=== PATIENT | female | born 1960 | race Caucasian/White ===

== ENCOUNTER 2016-04-14 08:01 | Inpatient (IN) | payer BC ==
[2016-03-04 08:14] VITALS: BMI 34.0
--- NOTE | 2016-03-04 08:45 | PAT Medication Instructions ---
Service Date Mar 04, 2016. Current Home Medication List Amlodipine (Norvasc), 5 MG PO QAM Ibuprofen (Advil), 400 MG PO HS Lisinopril (Zestril), 10 MG PO QAM Tramadol (Ultram), 3 TAB PO BID PRN for Pain Medication Instructions For Your Scheduled Surgery Ibuprofen (Advil), 400 MG PO HS (per surgeon instructions) - Hold the following medications the morning of surgery: Lisinopril (Zestril), 10 MG PO QAM - Take the following medications the morning of surgery with a sip of water: Amlodipine (Norvasc), 5 MG PO QAM Tramadol (Ultram), 3 TAB PO BID PRN for Pain (okay to take up to 4 hours prior to surgery if needed) - Take the following medications as scheduled the night before surgery: Tramadol (Ultram), 3 TAB PO BID PRN for Pain (if needed) If you have any questions please call us at [phone] (Adilene Thomson PA-C) or [phone] or [phone]
--- NOTE | 2016-03-04 09:16 | DIAGNOSTIC IMAGING REPORT ---
CHEST PREADMISSION(PA/LAT) CLINICAL HISTORY: PAT preoperative evaluation COMPARISON STUDY: No previous studies for comparison. FINDINGS: The bones soft tissues and hemidiaphragms are normal. The cardiomediastinal silhouette is normal. The lungs are clear. The pulmonary vasculature is normal. IMPRESSION: Negative chest. Electronically signed by: Tong Lin M.D. 03/04/2016 9:15 AM
[2016-03-04 09:29] LABS: BASO % 0.2 %; BASO ABS # 0.01 K/uL (0-0.2); COMPLETE YES; EOS % 3.2 %; HEMATOCRIT 41.4 % (37-47); LYMPH % 30.3 %; LYMPH ABS # 1.53 K/uL (1.2-3.4); MEAN CELL VOLUME 89.6 fL (80-100); MEAN CORPUSCULAR HEMOGLOBIN 30.1 pg (25-34); MEAN CORPUSCULAR HGB CONC 33.6 g/dl (32-36); MEAN PLATELET VOLUME 11.8 fL (7.4-10.4); MONO % 9.3 %; PLATELET COUNT 309 K/uL (130-400); RED BLOOD COUNT 4.62 M/uL (4.2-5.4); WHITE BLOOD COUNT 5.05 K/uL (4.8-10.8)
[2016-03-04 09:38] LABS: INR 0.9 (0.9-1.1); PROTHROMBIN TIME (PATIENT) 9.9 SECONDS (9.0-12.0)
[2016-03-04 10:03] LABS: CREATININE 0.69 mg/dl (0.60-1.20)
[2016-03-04 11:53] LABS: CALCIUM 9.3 mg/dl (8.5-10.1)
[2016-03-04 12:00] LABS: ESTIMATED AVERAGE GLUCOSE 108 mg/dl; HA1C FLAG Normal (Normal)
--- NOTE | 2016-03-17 15:55 | History and Physical ---
History & Physical DATE OF SURGERY: 04/01/16 PROCEDURE: Left knee replacement on 04/01/16 HISTORY OF PRESENT ILLNESS: The patient is a pleasant 55-year-old female who presents for preoperative evaluation prior to left knee replacement. She has been having pain in this knee for several years now, which has gradually worsened, and now gotten to the point where it is affecting her daily activities including walking, standing, going up and down steps. She has tried oral anti-inflammatories including Aleve and ibuprofen without relief, has had previous cortisone injections as well as viscosupplementation. She has done physical therapy as well with minimal relief. At this point in time, has failed conservative measures and would like to proceed with a left knee replacement. PAST MEDICAL HISTORY: 1. Hypertension. ALLERGIES: NKDA CURRENT MEDICATIONS: 1. Lisinopril 2. Amlodipine 5mg daily 3. Tramadol prn pain 4. Advil as needed PAST SURGICAL HISTORY: 1. left knee arthroscopy FAMILY HISTORY: Noncontributory. SOCIAL HISTORY: The patient denies alcohol consumption, quit smoking 30 years ago. REVIEW OF SYSTEMS: Otherwise negative. Please see HPI for pertinent positives. PHYSICAL EXAMINATION: GENERAL: Maritza 55-year-old female in no acute distress, alert and oriented x3. She is 5 feet 5 inches, weighs 200 pounds. VITAL SIGNS: Blood pressure 126/84, pulse 68, O2 sat 98%. HEENT: Normocephalic, atraumatic. CARDIAC: Regular rate and rhythm. No murmurs or gallops appreciated. Resting pulse 68 beats per minute. LUNGS: Clear to auscultation without rales or wheeze bilaterally. ABDOMEN: Soft, nontender. Bowel sounds present. EXTREMITIES: Left lower extremity is neurovascularly intact. Calves are soft and nontender. DP pulse +2, demonstrates good quad tone. Straight leg raise is without lag. No erythema or warmth. Has mild effusion. Overall has varus alignment. Her knee is ligamentously stable. Has diffuse tenderness to the knee which is the greatest over the medial compartment. IMAGING: Reviewed of the left knee show findings consistent with degenerative joint disease including joint space narrowing, subchondral sclerosis, peripheral osteophytes noted. Has varus alignment. Has greatest degenerative changes in the medial compartment and patellofemoral joint. IMPRESSION: 1. Left knee degenerative joint disease. 2. Hypertension. PLAN: Further care discussed with the patient. At this point in time, has failed conservative measures and would like to proceed with a left knee replacement. Would like to be discharged home with home health physical therapy, will place on aspirin 81 mg p.o. b.i.d. for a month postop. Follow up 2 weeks postop for staple removal or sooner if she is having any problems.
[2016-04-14] VITALS (8 sets, daily range): BP systolic 104–138; BP diastolic 67–94; PULSE 79–101; TEMP 36.5–37; O2SAT 95–98; Ht 165.1 cm; Wt 93.7 kg
[~2016-04-14] VITALS: Ht 165.1 cm; Wt 93.7 kg
--- NOTE | 2016-04-14 07:12 | History & Physical Bridge Note ---
H&P Re-Evaluation Bridge Note: I have examined the patient, reviewed the History & Physical and in the interval since the performance of the History & Physical I have noted the following changes of clinical significance: No changes noted
[~2016-04-14 08:01] MED LIST: ACETAMINOPHEN 500 MG TAB PO SCH; AMLO-110 PO; BUPIVACAINE 0.5 % 5 MG/1 ML PF 10ML VIAL ONE; CEFAZOLIN 2000 MG/60 ML D5W 60 ML IV SCH; CeleBREX 200 MG CAP PO SCH; DEXAMETHASONE 4 MG TAB PO SCH; FAMOTIDINE 20 MG TAB PO SCH; GABAPENTIN 300 MG CAP PO SCH; IBUP-1050 PO; LACTATED RINGER'S 1000ML IV SCH; LACTATED RINGER'S 500 ML IV SCH; LISI-461 PO; METOCLOPRAMIDE HCL 10 MG TAB PO SCH; ROPIVACAINE 5MG/ML 30 ML 150 MG, BUPIVACAINE/EPINEPHR 0.5% MPF 30 ML, KETOROLAC TROMETH... INFIL SCH; TRAM-10 PO
[2016-04-14] MEDS ORDERED: NURSING VERBAL MED ORDER STA (08:18)
[2016-04-14] MEDS ORDERED: FENTANYL CITRATE INJ 50 MCG/1 ML 2 ML VIAL IV PRN (09:00)
[2016-04-14] MEDS ORDERED: EpHEDrine SULFATE INJ 50 MG/ML AMP IV PRN (09:00)
[2016-04-14] MEDS ORDERED: ONDANSETRON INJ 2 MG/ML 2 ML VIAL IV PRN ×2 (09:00→12:15)
[2016-04-14] MEDS ORDERED: ATROPINE SULFATE 0.1 MG/ML 5ML SYR IV PRN (09:00)
[2016-04-14] MEDS ORDERED: FENTANYL CITRATE INJ 50 MCG/1 ML 2 ML VIAL ONE (09:08)
[2016-04-14] MEDS ORDERED: PROPOFOL IV EMULSION 10 MG/ML 20 ML VIAL IV ONE (09:08)
[2016-04-14] MEDS ORDERED: MIDAZOLAM HCL 1 MG/ML 2ML VIAL ONE (09:08)
[2016-04-14] MEDS ORDERED: ONDANSETRON INJ 2 MG/ML 2 ML VIAL ONE (09:08)
[2016-04-14] MEDS ORDERED: LIDOCAINE HCL 2% 2 ML VIAL (20MG/ML) ONE (09:08)
[2016-04-14] MEDS ORDERED: ORTHO JOINT ANESTHETIC ONE (10:07)
[2016-04-14] MEDS: TRANEXAMIC ACID AMP 1,000 MG in NSS 100ML IV SCH ×2 (10:12→14:23)
[2016-04-14] MEDS ORDERED: PHENYLEPHRINE 100MCG/ML 5ML SYR ONE (10:47)
[2016-04-14] MEDS ORDERED: BACITRACIN 50000 UNIT VIAL IR ONE (11:04)
[2016-04-14] MEDS ORDERED: POVIDONE-IODINE OP SOLN 30 ML BTL TOP ONE (11:04)
--- NOTE | 2016-04-14 11:31 | [facility] Post Operative Brief Note ---
Immediate Operative Summary Operative Date Apr 14, 2016. Pre-Operative Diagnosis Left knee degenerative joint disease Post-Operative Diagnosis Left knee degenerative joint disease Procedure(s) Performed Left Total Knee Arthroplasty Surgeon Dr. Aydin Castillo Multifocal Button Inspector Surgeon(s) Min Pena PA-C Estimated Blood Loss 5cc Findings severe djd lt knee Specimens A: Left Knee Bone and Tissue Complication(s) None Disposition Recovery Room / PACU
--- NOTE | 2016-04-14 11:48 | OPERATIVE REPORT ---
DATE OF OPERATION: 04/14/2016 PREOPERATIVE DIAGNOSIS: Severe end-stage tricompartmental degenerative joint disease left knee. POSTOPERATIVE DIAGNOSIS: Severe end-stage degenerative joint disease, left knee. Valgus alignment and genu recurvatum. PROCEDURE: Left total knee arthroplasty with Journey II total knee arthroplasty, patient matched size 4 femur, 2 tibia, 15 poly, 29 oval patella. SURGEON: Dr. Castillo. WHEEL SHOP SUPERVISOR: Min Pena PA-C who was necessary for prepping, draping, retraction, wound closure of deep fascia, subQ and skin and was necessary for the case. ESTIMATED BLOOD LOSS: 5 mL. COMPLICATIONS: None. TOURNIQUET TIME: 45 minutes. HISTORY OF PRESENT ILLNESS: The patient presents as a very pleasant 56-year-old female with severe DJD attributable to her left knee. She has been nonresponsive to conservative therapy and presents today for total knee arthroplasty after failing attempts at injections, viscosupplementations, relative rest, activity modification. OPERATION AND FINDINGS: PROCEDURE: The patient was properly prepped and draped in supine position for total knee arthroplasty after identifying the appropriate surgical site. An anterior midline incision was made through the subcutaneous tissues down to the region of the extensor mechanism. A medial parapatellar incision was subsequently made. Meticulous hemostasis was obtained and performed at all times. The patella having been subluxed lateralward, medial and lateral meniscal remnants were excised. The patellar cut was then initially made and was sized to the appropriate size. After subluxing the tibia forward the appropriate meniscal fragments having been removed the distal femur was then cut first utilizing a Camp \T\ Nephew block. The distal femoral cuts and chamfer cuts were all made under direct visualization and the proximal tibial osteotomy cut was also made utilizing Camp \T\ Nephew blocks and checked with an extramedullary guide. The appropriate trial components on the femur and tibia were placed. Appropriate trial spacers were used to check flexion and extension gaps. With flexion and extension gaps being equal, the components were then subsequently after thorough irrigation and debridement lavage components were then subsequently cemented in the following order: femur, tibia and patella. Exparel was used for intraoperative anesthesia, the medial parapatellar incision was closed utilizing #1 Vicryl, subQ was closed with 2-0 Vicryl, skin was closed with skin clips. A sterile compression dressing was placed. The patient was taken to recovery room in stable condition. Due to the complex nature of the procedure, the entire surgery was performed with the operational assistance of Min Pena PA-C. The retail assistant, under direct supervision, was involved in the actual performance of all aspects of the surgical procedure including hemostasis, tissue retraction and incision, instrument management, patient positioning, and wound closure. I attest to the content of the Intraoperative Record and any orders documented therein. Any exceptio ns are noted below.
[2016-04-14] MEDS ORDERED: OXYCODONE HCL IR 5 MG TAB (IMMEDIATE RELEASE) PO PRN (12:15)
[2016-04-14] MEDS ORDERED: ZOLPIDEM TARTRATE 5 MG TAB PO PRN (12:15)
[2016-04-14] MEDS ORDERED: BISACODYL 10 MG SUPP PR PRN (12:15)
[2016-04-14] MEDS ORDERED: MAGNESIUM HYDROXIDE SUSP 30 ML UDC PO PRN (12:15)
[2016-04-14] MEDS ORDERED: DiphenhydrAMINE HCL 50 MG/ML VIAL IV PRN (12:15)
[2016-04-14] MEDS ORDERED: ALUMINUM/MAGNESIUM/SIMETH (MAALOX MAX) 30 ML UDC PO PRN (12:15)
[2016-04-14] MEDS ORDERED: MoRPHine SULFATE 2 MG/ML CARP IV PRN ×2 (12:15→14:15)
--- NOTE | 2016-04-14 12:40 | DIAGNOSTIC IMAGING REPORT ---
LEFT KNEE 2 VIEWS History: Left total knee arthroplasty. Degenerative arthritis. Postop. FINDINGS: The patient is status post a left total knee arthroplasty. The hardware is intact. No fracture or dislocation. Skin hugo and surgical drains are in place. IMPRESSION: Left total knee arthroplasty. No evidence for hardware complication. Electronically signed by: Douglas Fish M.D. 04/14/2016 12:38 PM Dictated Date/Time: 04/14/2016 12:36 PM
[2016-04-14] MEDS ORDERED: MoRPHine SULFATE 10 MG/ML CARP/VIAL IV PRN (14:15)
[2016-04-14] MEDS ORDERED: MoRPHine SULFATE 4 MG/ML 1 ML CARP\\VIAL IV PRN (14:15)
[2016-04-14] MEDS: D5W AND 1/2NSS + 20MEQ KCL 1,000 ML IV SCH (14:36)
--- NOTE | 2016-04-14 15:32 | Anesthesiology Progress Note ---
Anesthesia Post Op Note Date & Time Apr 14, 2016 at 15:32 Vital Signs Pain Intensity: 0.0 Vital Signs Past 12 Hours Date Time Temp Pulse Resp B/P Pulse Ox O2 Delivery O2 Flow Rate FiO2 04/14/16 14:35 86 129/78 04/14/16 14:02 36.5 85 16 120/74 98 Nasal Cannula 2.0 04/14/16 13:30 98 Nasal Cannula 2.0 04/14/16 13:30 98 Nasal Cannula 2.0 04/14/16 13:30 36.6 97 16 104/67 97 Nasal Cannula 2.0 04/14/16 13:05 36.8 85 16 109/63 96 Nasal Cannula 2 04/14/16 12:50 36.8 87 16 118/65 97 Nasal Cannula 2 04/14/16 12:40 80 16 118/61 97 Nasal Cannula 2 04/14/16 12:30 85 16 111/60 96 Nasal Cannula 2 04/14/16 12:20 81 16 114/59 97 Mask 10 04/14/16 12:14 37.0 84 16 100/58 100 Mask 10 04/14/16 08:25 36.7 81 20 138/94 96 Room Air Notes Mental Status: alert / awake / arousable, participated in evaluation Pt Amnestic to Procedure: Yes Nausea / Vomiting: adequately controlled Pain: adequately controlled Airway Patency, RR, SpO2: stable & adequate BP & HR: stable & adequate Hydration State: stable & adequate Anesthetic Complications: no major complications apparent
[2016-04-14] MEDS: FERROUS GLUCONATE 324 MG TAB PO SCH (18:09)
[2016-04-14] MEDS: CEFAZOLIN IV 2,000 MG in DEXTROSE 5% 50ML 50 ML IV SCH (18:09)
[2016-04-14] MEDS: ASPIRIN 81 MG ECTAB PO SCH (21:10)
[2016-04-14] MEDS: SENNA 8.6 MG TAB PO SCH (21:10)
[2016-04-14] MEDS: DOCUSATE SODIUM 100 MG CAP PO SCH (21:10)
[2016-04-14] MEDS: ACETAMINOPHEN 500 MG TAB PO SCH (21:11)
[2016-04-14] MEDS: OXYCODONE HCL 10 MG TABCR (OXYCONTIN) PO SCH (21:11)
[2016-04-15] MEDS: D5W AND 1/2NSS + 20MEQ KCL 1,000 ML IV SCH ×2 (00:41→11:08)
[2016-04-15] MEDS: CEFAZOLIN IV 2,000 MG in DEXTROSE 5% 50ML 50 ML IV SCH (01:36)
[2016-04-15 04:00] VITALS: BP 110/71; PULSE 74; TEMP 36.8; O2SAT 96
[2016-04-15] MEDS: ACETAMINOPHEN 500 MG TAB PO SCH ×3 (05:38→21:21)
[2016-04-15 06:36] LABS: HEMATOCRIT 33.3 % (37-47); MEAN CELL VOLUME 88.3 fL (80-100); MEAN CORPUSCULAR HEMOGLOBIN 30.2 pg (25-34); MEAN CORPUSCULAR HGB CONC 34.2 g/dl (32-36); MEAN PLATELET VOLUME 11.3 fL (7.4-10.4); PLATELET COUNT 269 K/uL (130-400); RED BLOOD COUNT 3.77 M/uL (4.2-5.4); WHITE BLOOD COUNT 14.18 K/uL (4.8-10.8)
[2016-04-15 07:05] LABS: BUN/CREATININE RATIO 19.2 (10-20); CALCIUM 8.8 mg/dl (8.5-10.1); CREATININE 0.77 mg/dl (0.60-1.20); POTASSIUM 4.2 mmol/L (3.5-5.1)
[2016-04-15 08:01] VITALS: BP 130/70; PULSE 74; TEMP 36.8; O2SAT 98
[2016-04-15] MEDS: PANTOprazole SOD 40 MG TAB PO SCH (08:53)
[2016-04-15] MEDS: MULTIVITAMIN TAB PO SCH (08:54)
[2016-04-15] MEDS: FERROUS GLUCONATE 324 MG TAB PO SCH ×3 (08:54→17:36)
[2016-04-15] MEDS: AMLODIPINE BESYLATE 5 MG TAB PO SCH (08:54)
[2016-04-15] MEDS: DOCUSATE SODIUM 100 MG CAP PO SCH ×2 (08:54→21:21)
[2016-04-15] MEDS: ASPIRIN 81 MG ECTAB PO SCH ×2 (08:54→21:21)
[2016-04-15] MEDS: OXYCODONE HCL 10 MG TABCR (OXYCONTIN) PO SCH ×2 (08:55→21:20)
[2016-04-15] MEDS: LISINOPRIL 10 MG TAB PO SCH (08:55)
--- NOTE | 2016-04-15 09:50 | Orthopedic Progress Note ---
Orthopedic Progress Note Date of Service Apr 15, 2016. Subjective Post OP Day: 1 Reports: feeling well, pain controlled w PO medications, Denies: SOB, calf pain , chest pain, complaints, light headedness, nausea / vomiting Objective calves soft nontender, N/V intact, capillary refill less than 2 sec., dressing C /D/I, A&O x3, toes mobile, hemovac drainage (70cc/8 hours) Date Time Temp Pulse Resp B/P Pulse Ox O2 Delivery O2 Flow Rate FiO2 04/15/16 08:01 36.8 74 18 130/70 98 Room Air 04/15/16 07:40 Room Air 04/15/16 04:00 36.8 74 18 110/71 96 Room Air 04/14/16 23:45 36.5 79 20 118/73 95 Room Air 04/14/16 19:56 36.9 85 16 119/76 97 Room Air 04/14/16 19:45 Room Air 04/14/16 16:27 37.0 90 16 113/73 96 Nasal Cannula 2.0 04/14/16 15:39 36.6 101 16 118/76 98 Nasal Cannula 2.0 04/14/16 14:35 86 129/78 04/14/16 14:02 36.5 85 16 120/74 98 Nasal Cannula 2.0 04/14/16 13:30 98 Nasal Cannula 2.0 04/14/16 13:30 98 Nasal Cannula 2.0 04/14/16 13:30 36.6 97 16 104/67 97 Nasal Cannula 2.0 04/14/16 13:05 36.8 85 16 109/63 96 Nasal Cannula 2 04/14/16 12:50 36.8 87 16 118/65 97 Nasal Cannula 2 04/14/16 12:40 80 16 118/61 97 Nasal Cannula 2 04/14/16 12:30 85 16 111/60 96 Nasal Cannula 2 04/14/16 12:20 81 16 114/59 97 Mask 10 04/14/16 12:14 37.0 84 16 100/58 100 Mask 10 Laboratory Results 24 Hours: Test 04/15/16 05:50 Hematocrit 33.3 % Hemoglobin 11.4 g/dL Assessment & Plan Assessment: POD #1 s/p Left TKA -PT/OT -dvt proph with teds/scds/asa -plan for dc home with HHPT when stable HTN Discharge Planning Discharge Planning: home with home health DVT Prophylaxis: TEDs, SCDs, ASA Therapy: Physical Therapy
[2016-04-15 10:19] VITALS: O2SAT 98
[2016-04-15 12:01] VITALS: BP 142/70; PULSE 78; TEMP 36.4; O2SAT 94
--- NOTE | 2016-04-15 13:33 | Discharge Instructions ---
Discharge Instructions Admission Reason for Admission: Unilateral Primary Osteoarthritis Left Knee Discharge Discharge Diagnosis / Problem: Left Total Knee Replacement Discharge Goals Goal(s): Decrease discomfort, Improve function, Increase independence Activity Recommendations Activity Limitations: as noted below Weightbearing Status: Left weightbearing (as tolerated) . Instructions / Follow-Up Instructions / Follow-Up ACTIVITY RECOMMENDATIONS: SELF CARE INSTRUCTIONS AFTER TOTAL KNEE REPLACEMENT A. You may need to continue a physical therapy program after discharge from the hospital. There are several options available to you. Your doctor will assist you in selecting the best one for you. 1. An out-patient facility 2 to 3 times a week for therapy or home therapy. 2. Continue working on all exercises taught to you in the hospital. Your goals should be to increase bending of your knee to 90 degrees and beyond and to fully straighten your knee. B. You may progress at your own pace from walking with a walker or crutches to a cane; then to no assistive devices. C. Make walking a part of your daily routine. Be up as much as comfortable with rest periods throughout the day. Rest with leg elevation is very important. Use the ice wrap frequently for the first 3-4 weeks. D. There are no restrictions on activities. You may ride in a car, shop, participate in companion caregiver and all social activities. E. Wear the long elastic stockings (CONSUELO hose) 20 hours a day for 2 weeks after surgery. They can be removed several times a day for laundering and for a bath. F. You may shower, no tub baths until cleared by your doctor. SPECIAL CARE INSTRUCTIONS: VERY IMPORTANT TO READ AND REVIEW A. There are a few signs you need to watch for after you are home. Call [facility] if you notice any of the followin. Increased severe knee pain. Some pain is expected especially when you exercise. 2. Increased swelling in your leg or knee; pain or swelling of the calf muscle in either lower leg. 3. Any fluid drainage from the incision. 4. Shortness of breath or chest pain. B. Please call [facility] at if you have any concerns or questions about your operation or recovery. The doctor or his nurse will return your call promptly. C. You must take antibiotics before dental work, bladder, bowel or other surgery. Your doctor will provide you with a permanent care to carry describing this precaution. IMPORTANT: * REMEMBER TO TAKE ASPIRIN, 81 MG, TWICE DAILY FOR 4 WEEKS UNLESS OTHERWISE DIRECTED. THIS IS YOUR BLOOD THINNER. * HIGH RISK PATIENTS MAY BE PRESCRIBED A STRONGER BLOOD THINNER. THIS WILL BE PROVIDED AT DISCHARGE. * CALL IF INCREASED PAIN, REDNESS, DRAINAGE OR FEVER GREATER THAT 101. * WEAR CONSUELO HOSE 20 HOURS PER DAY FOR 2 WEEKS. * YOU MAY HAVE A LARGE BAND-AID LIKE DRESSING (SILVERON). THIS WILL REMAIN ON YOUR INCISION FOR 7 DAYS, THEN CAN BE REMOVED. IF INCISION IS LEAKING THROUGH DRESSING, CALL THE OFFICE . FOLLOW UP VISIT: If appointment is not already scheduled: Please call [facility] to make a follow-up appointment for 2 weeks after your surgery at . Current Hospital Diet Patient's current hospital diet: Regular Diet Discharge Diet Recommended Diet: Regular Diet Procedures Procedures Performed: Left Total Knee Arthroplasty Pending Studies Studies pending at discharge: no Laboratory Results Hemoglobin A1c Test 03/04/16 08:52 Range/Units Estimated Average Glucose 108 mg/dl Hemoglobin A1c 5.4 4.5-5.6 % Medical Emergencies . Who to Call and When: Medical Emergencies: If at any time you feel your situation is an emergency, please call [phone] immediately. . Non-Emergent Contact Non-Emergency issues call your: Primary Care Provider, Surgeon . "Provider Documentation" section prepared by Tong Mercado. VTE Core Measure Inpt VTE Proph given/why not?: Other Anticoagulation (ASA 81mg po bid x 1 month ), T.E.D. Stockings, SCD's
[2016-04-15 15:08] VITALS: BP 106/67; PULSE 77; TEMP 36.9; O2SAT 96
[2016-04-15] MEDS: SENNA 8.6 MG TAB PO SCH (21:20)
[2016-04-15 22:46] VITALS: BP 115/70; PULSE 77; TEMP 36.7; O2SAT 95
[2016-04-16] MEDS: ACETAMINOPHEN 500 MG TAB PO SCH (05:38)
[2016-04-16 05:56] VITALS: BP 135/82; PULSE 75; TEMP 36.8; O2SAT 100
--- NOTE | 2016-04-16 08:12 | Orthopedic Progress Note ---
Orthopedic Progress Note Date of Service Apr 16, 2016. Subjective Post OP Day: 2 Reports: feeling well, pain controlled w PO medications, Denies: SOB, calf pain , chest pain, complaints, light headedness, nausea / vomiting Objective calves soft nontender, N/V intact, capillary refill less than 2 sec., dressing C /D/I, A&O x3, toes mobile Date Time Temp Pulse Resp B/P Pulse Ox O2 Delivery O2 Flow Rate FiO2 04/16/16 07:21 Room Air 04/16/16 05:56 36.8 75 16 135/82 100 Room Air 04/16/16 01:15 Room Air 04/15/16 22:46 36.7 77 16 115/70 95 Room Air 04/15/16 19:25 Room Air 04/15/16 15:08 36.9 77 17 106/67 96 Room Air 04/15/16 12:01 36.4 78 18 142/70 94 Room Air 04/15/16 10:19 98 Room Air Assessment & Plan Assessment: POD #2 s/p Left TKA -PT/OT -dvt proph with teds/scds/asa -plan for dc home with HHPT, patient stable for d/c today HTN Discharge Planning Discharge Planning: home with home health DVT Prophylaxis: TEDs, SCDs, ASA Therapy: Physical Therapy
[2016-04-16] MEDS ORDERED: RXC5 PO (08:15)
[2016-04-16] MEDS ORDERED: OXYSR10 PO (08:15)
[2016-04-16] MEDS ORDERED: ACET-1138 PO (08:15)
[2016-04-16] MEDS ORDERED: ASPEC81 PO (08:15)
[2016-04-16] MEDS ORDERED: CLC100 PO (08:15)
[2016-04-16] MEDS ORDERED: ONDA8TAB6 PO (08:15)
[2016-04-16] MEDS: DOCUSATE SODIUM 100 MG CAP PO SCH (08:29)
[2016-04-16] MEDS: FERROUS GLUCONATE 324 MG TAB PO SCH (08:29)
[2016-04-16] MEDS: OXYCODONE HCL 10 MG TABCR (OXYCONTIN) PO SCH (08:30)
[2016-04-16] MEDS: MULTIVITAMIN TAB PO SCH (08:30)
[2016-04-16] MEDS: ASPIRIN 81 MG ECTAB PO SCH (08:30)
[2016-04-16] MEDS: AMLODIPINE BESYLATE 5 MG TAB PO SCH (08:30)
[2016-04-16] MEDS: LISINOPRIL 10 MG TAB PO SCH (08:31)
[2016-04-16] MEDS: PANTOprazole SOD 40 MG TAB PO SCH (08:31)
[2016-04-16 09:47] VITALS: BP 135/82; PULSE 75; TEMP 36.8; O2SAT 100
--- NOTE | 2016-04-20 15:38 | DISCHARGE SUMMARY ---
DISCHARGE DIAGNOSIS: Degenerative joint disease left knee. SECONDARY DIAGNOSIS: Hypertension. CONSULTS: None. COMPLICATIONS: None. PROCEDURES: Left total knee arthroplasty performed by Dr. Castillo on 04/14/2016. BRIEF HISTORY: As dictated in the history and physical. HOSPITAL SUMMARY: The patient was admitted on the above date and had the above-noted surgery performed which she tolerated well. On the first postoperative day, she was feeling well and pain was controlled. She had no complaints. Calves were soft and nontender, neurovascularly intact. Dressings clean, dry and intact. Toes were mobile. Vital signs were stable. She was afebrile. Hemoglobin was 11.4 and she was started on physical therapy protocol and continued on DVT prophylaxis and pain management. By her second postoperative day, she continued to progress well with her physical therapy. She was without complaints. Dressings were clean, dry and intact. Toes were mobile. Vital signs were stable and it was felt that she could be discharged to home with home health physical therapy. For further review, please see chart. LAB AND X-RAY DATA: As per chart. DISCHARGE INSTRUCTIONS: The patient was discharged to home in satisfactory condition on 04/16/2016. DIET: Regular. ACTIVITY: Weightbearing as tolerated left lower extremity. Follow TK instruction sheets and special care instructions as noted. Follow up with Dr. Castillo in 2 weeks. The patient to call for appointment if one has not been made for you. DISCHARGE MEDICATIONS: Acetaminophen 1000 mg p.o. q. 8 hours, aspirin 81 mg p.o. b.i.d., Colace 100 mg p.o. b.i.d., Zofran 8 mg p.o. q. 8 hours p.r.n., OxyContin 10 mg p.o. q. 12 hours, oxycodone 5-10 mg p.o. q. 4 hours p.r.n. Resume taking amlodipine 5 mg p.o. q.a.m., lisinopril 10 mg p.o. q.a.m. Stop taking ibuprofen and tramadol.
== END 2016-04-16 13:05 | disposition home health service (06) | DRG 470 ==
LOC: ENRESERVDT → ENRESERVTM → C.ACU 08:01 → C.3E 12:17
PROVIDERS: ADMIT Orthopaedic Surgery; ATTEND Orthopaedic Surgery
PROC: 0SRD0J9 Replacement of Left Knee Joint with Synthetic Substitute, Cemented, Open Approach (ICD-10-PCS; principal; 2016-04-14 10:30)
DX: M17.12 Unilateral primary osteoarthritis, left knee (principal); M21.162 Varus deformity, not elsewhere classified, left knee; M21.862 Other specified acquired deformities of left lower leg; I10 Essential (primary) hypertension; E66.9 Obesity, unspecified; Z68.34 Body mass index [BMI] 34.0-34.9, adult; Z87.891 Personal history of nicotine dependence; Z79.891 Long term (current) use of opiate analgesic; Z79.899 Other long term (current) drug therapy